=== PATIENT | female | born 1980 | race Caucasian/White ===

== ENCOUNTER → 2017-01-03 | Outpatient (CLI) | payer MEDICAID | LOC: FIMAGING 14:46 | PROVIDERS: ATTEND Physician Assistant Medical | DX: R10.9 Unspecified abdominal pain (principal) ==

== ENCOUNTER 2017-01-04 06:07 | Day surgery (SDC) | payer MEDICAID ==
[2017-01-04] MEDS ORDERED: LIDOCAINE 1% 2 ML INJ ONE (06:35)
[2017-01-04] MEDS ORDERED: IOPAMIDOL (ISOVUE-300) 150 ML BTL ONE (06:57)
[2017-01-04] MEDS ORDERED: LIDOCAINE 2% JELLY 20 ML (UROJECT) ONE (06:57)
[2017-01-04] MEDS ORDERED: IOPAMIDOL (ISOVUE-M 300) 15 ML VIAL ONE ×2 (06:58→07:13)
[2017-01-04] MEDS ORDERED: D5W LR 1,000 ML IV ONE (07:00)
[2017-01-04] MEDS ORDERED: ceFAZolin 2 GM/DEXTROSE 100 ML IV ONE (07:00)
[2017-01-04] MEDS ORDERED: MIDAZOLAM 2 MG/2 ML VIAL ONE (07:10)
[2017-01-04] MEDS ORDERED: fentaNYL 100 MCG/2 ML INJ ONE ×2 (07:10→08:48)
[2017-01-04] MEDS ORDERED: PROPOFOL 200 MG/20 ML VIAL ONE (07:11)
[2017-01-04] MEDS ORDERED: LIDOCAINE 2% JELLY 5 ML TUBE ONE (07:11)
[2017-01-04] MEDS ORDERED: ONDANSETRON 4 MG/2 ML VIAL ONE (07:12)
[2017-01-04] MEDS ORDERED: METOCLOPRAMIDE 10 MG/2 ML VIAL ONE (07:12)
--- NOTE | 2017-01-04 08:36 | POSTOPPROG ---
Post Op Note Date of Operation: 01/04/17 Surgeon: Kamille Adam (# [id number]) Anesthesia: LMA Pre-op Diagnosis: Right ureteral calculus Post-op Diagnosis: Distal right ureteral calculus Procedure: Right ureteroscopy w/ stone mgmt., stent placement Findings: See op note Inf/Abcess present in the surg proc area at time of surgery?: No EBL: Minimal Complications: None Specimen(s): Right ureteral calculus fragments
[2017-01-04] MEDS ORDERED: PHENAZOPYRIDINE HCL 200 MG TAB ONE (08:58)
--- NOTE | 2017-01-04 09:03 | GOP ---
[f rep st] OPERATIVE REPORT DATE OF OPERATION: 01/04/2017 SURGEON: Kamille Adam MD ANESTHESIA: Laryngeal mask. PREOPERATIVE DIAGNOSIS: Symptomatic right ureteral calculus. POSTOPERATIVE DIAGNOSIS: Symptomatic distal right ureteral calculus. PROCEDURE PERFORMED: 1. Cystourethroscopy, right retrograde pyelography. 2. Right ureteroscopy with holmium laser calculus, lithotripsy and basket extraction. 3. Right ureteral stent placement (4.7-[place] by 24 cm). FINDINGS: Distal right ureteral calculus, treated as mentioned in the details of procedure. SPECIMENS: Calculus fragments. ESTIMATED BLOOD LOSS: Minimal. INDICATIONS: This woman presented to our office yesterday with symptoms related to a ureteral calcu katherine which she has been unable to pass spontaneously. She has opted to undergo intraoperative manage ment. The indications for the procedures as well as potential risks and complications, were discuss ed with the patient preoperatively. She appeared to understand, her questions were answered, and sh e wished to proceed. Written informed surgical consent was thereafter obtained. DESCRIPTION OF PROCEDURE: The patient was brought to the operating room and administered laryngeal mask anesthesia. She was carefully placed in the dorsal lithotomy position on the cystoscopic table . The genital area was sterilely prepped with Betadine scrub and paint and then draped in usual tamara rile fashion. Cystoscopy was performed with a 30-degree lens through a 22-[place] sheath. Urethra a nd bladder were unremarkable. Ureteral orifices were normal in regard to shape and position along t he trigone. A 5-[place] open-ended ureteral catheter was used to perform retrograde pyelography on t he right side. This revealed a filling defect in the distal ureter with mild proximal hydronephrosi s and hydroureter. No other filling defects were seen within the ureter or no renal collecting syst em. I then passed a 0.035 inch Sensor guidewire up the right ureter, with the aid of the 5-[place] open-e nded ureteral catheter, and advanced it proximally until it was within the renal collecting system a s noted fluoroscopically. A 4 cm balloon was then used to dilate the distal ureter by maintaining a pressure of 16 atmospheres for about 4 minutes. The balloon dilator and cystoscope were then remov ed while keeping the guidewire in place. Semi-rigid ureteroscopy was performed alongside the guidew aminta. The calculus was seen within the distal ureter. A 365 micron holmium laser fiber was used to fragment the calculus into 3 pieces which were all extracted with the stone basket unremarkably. Th fawad were sent to Pathology for chemical analysis. I advanced the ureteroscope all the way to the ur eteropelvic junction. No other abnormalities, other than dilatation, were seen. The ureteroscope w as removed, and the cystoscope was back loaded over the guidewire. A 4.7-[place] x 24 cm hydrophilic ureteral stent was advanced over the guidewire until it was properly positioned and seen fluoroscop ically in the kidney and cystoscopically in the bladder. The bladder was then drained of all return which was relatively clear. The instruments were removed and 20 cc of 2% lidocaine injected transu rethrally for postoperative analgesic purposes. The patient was then awakened, transferred to her b ed, then taken to the recovery room. She tolerated the procedure well overall. COMPLICATIONS: None. DISPOSITION: She was transferred to the recovery room in stable condition. She will be discharged once meeting standard criteria with instructions to return to the office in approximately 2 weeks fo r ureteral stent removal. /[id number]/MODL
[2017-01-10 08:19] LABS: SOURCE OF STONE RIGHT URETERAL
[2017-01-10 08:20] LABS: NIDUS NOT OBSERVED
== END 2017-01-04 10:10 | disposition home or self-care (01) ==
LOC: FSGY 06:07 → EDSTATUS 07:15 → FSGY 10:10
PROVIDERS: ATTEND Specialist
DX: N20.1 Calculus of ureter (principal)
CPT/HCPCS: 52356; 76001; C1726; C1758; C1769; 82365-90; C2625; J0690; J2250; J2405; J2704; J2765; J3010; Q9967